=== PATIENT | male | born 1985 | race Two or more races ===

== ENCOUNTER 2024-09-29 21:44 | Emergency (ER) | payer OTHER ==
[~2024-09-29] VITALS: Ht 177.8 cm; Wt 89.5 kg
[2024-09-29 22:04] VITALS: TEMP 98
[2024-09-29] MEDS ORDERED: DICY-1 PO (22:05)
[2024-09-29] MEDS ORDERED: LOPE-232 PO (22:05)
[2024-09-30 00:22] LABS: BASOPHILS % (AUTO) 0.7 % (0.0-2.0); EOSINOPHILS % (AUTO) 2.8 % (1.0-6.0); HEMATOCRIT 40.1 % (41-53); HEMOGLOBIN 13.2 g/dL (13.5-17.5); LYMPHOCYTES # (AUTO) 1.5 K/uL (1.0-4.8); LYMPHOCYTES % (AUTO) 33.6 % (22.0-44.0); MEAN CORPUSCULAR HGB CONC 32.9 G/dL (31.0-37.0); MEAN CORPUSCULAR VOLUME 82 fL (80-100); MONOCYTES # (AUTO) 0.4 K/uL (0.1-1.0); MONOCYTES % (AUTO) 8.8 % (2.0-9.0); NEUTROPHILS # (AUTO) 2.4 K/uL (1.8-7.7); NEUTROPHILS % (AUTO) 54.1 % (40.0-70.0); PLATELET COUNT (AUTO) 94 K/uL (150-450); RED BLOOD CELL COUNT(AUTO) 4.88 MIL/uL (4.50-5.90); RED CELL DISTRIBUTION WIDTH 17.6 % (11.5-14.5); WHITE BLOOD COUNT (AUTO) 4.4 K/uL (4.5-11.0)
[2024-09-30 00:31] LABS: ANION GAP 6 mmol/L (8-16); CALCIUM, TOTAL 8.2 mg/dL (8.8-10.5); CARBON DIOXIDE 28 mmol/L (22-29); CHLORIDE 112 mmol/L (98-107); CREATININE 0.86 mg/dL (0.60-1.30); GLOMERULAR FILTR. RATE CALC > 60 mL/min (>60); GLUCOSE,RANDOM 82 mg/dL (70-110); POTASSIUM 3.8 mmol/L (3.5-5.1); SODIUM SERUM 146 mmol/L (136-145); UREA NITROGEN, BLOOD 11 mg/dL (7-18)
[2024-09-30 00:37] LABS: ALANINE AMINOTRANSFERASE 38 U/L (12-78); ALBUMIN 1.5 g/dL (3.4-5.0); ALKALINE PHOSPHATASE 198 U/L (46-116); ASPARTATE AMINOTRANSFERASE 68 U/L (15-37); BILIRUBIN,TOTAL 1.5 mg/dL (0.1-1.0); LIPASE 34 U/L (16-77); TOTAL PROTEIN, SERUM 5.3 g/dL (6.4-8.2)
[2024-09-30] MEDS: SODIUM CHLORIDE 0.9% 1,000 ML IV ONE (00:40)
[2024-09-30] MEDS: HYDROmorphone HCL 2 MG/ML SYRINGE IVP ONE ×2 (00:40→02:12)
[2024-09-30] MEDS: DiphenhydrAMINE HCL 50 MG/ML VIAL IVP ONE (00:49)
[2024-09-30] MEDS ORDERED: IOHEXOL 350 MG/ML 100 ML VIAL ONE (01:04)
[2024-09-30] MEDS: LOPERAMIDE HCL 2 MG CAPSULE PO ONE (08:45)
[2024-09-30] MEDS: DICYCLOMINE HCL 20 MG TABLET PO ONE (08:45)
[2024-09-30] MEDS: OMEPRAZOLE 20 MG CAPSULE PO ONE (08:46)
[2024-09-30] MEDS: RIFAXIMIN 550 MG TABLET PO ONE (08:50)
[2024-09-30] MEDS ORDERED: DICYCLOMINE HCL 20 MG TABLET PO ONE ×2 (09:15)
[2024-09-30] MEDS ORDERED: RIFAXIMIN 550 MG TABLET PO SCH ×2 (09:24→16:00)
[2024-09-30 09:50] VITALS: BP 129/89; PULSE 69; RESP 16; O2SAT 100
[2024-09-30] MEDS ORDERED: DICYCLOMINE HCL 20 MG TABLET PO SCH (16:00)
[2024-09-30] MEDS ORDERED: RIFAXIMIN 550 MG TABLET PO ONE (16:00)
== END 2024-09-30 09:52 | disposition home or self-care (01) ==
LOC: EMS 21:44
DX: K50.911 Crohn's disease, unspecified, with rectal bleeding (principal); K74.60 Unspecified cirrhosis of liver; Z88.1 Allergy status to other antibiotic agents; Z88.8 Allergy status to other drugs, medicaments and biological substances; Z91.041 Radiographic dye allergy status; Z93.2 Ileostomy status; Z98.890 Other specified postprocedural states
CPT/HCPCS: 99285; 74177; 80048; 80076; 83690; 85025; 36415; 96374; 76705; 96361; 96375; 96376; J1171; Q9967; J1200; J7030